=== PATIENT | female | born 1990 | race Hispanic/Latino ===

== ENCOUNTER 2016-10-16 17:51 | Emergency (ER) | payer MEDICAID ==
[2016-10-16 17:51] VITALS: BMI 41.1
[2016-10-16 17:59] VITALS: BP 110/66; PULSE 78; RESP 16; TEMP 98.3; O2SAT 99
--- NOTE | 2016-10-16 18:48 | ED PDOC ---
HPI: Abdomen Time Seen by Provider: 10/16/16 18:06 Chief Complaint (Nursing): Abdominal Pain Chief Complaint (Provider): Abdominal pain History Per: Patient History/Exam Limitations: no limitations Onset/Duration Of Symptoms: Days (4) Outside of [place] travel?: No Current Symptoms Are (Timing): Still Present Severity: Moderate Location Of Pain/Discomfort: Diffuse, RLQ, LUQ Quality Of Discomfort: Cramping, "Pain" Associated Symptoms: Vomiting, Diarrhea Additional History Per: Patient Additional Complaint(s): The pt is a 26yo female with PMHx of hypothyroid, asthma, ovarian cyst, presents to the ED for evaluation of progressively worsening abdominal pain for the past 4 days. Pt reports her pain radiates to her left flank with some pelvic pain near her right lower quadrant of abdomen. Pt reports pain is associated with 6-7 episodes of vomiting, non-bilious, sometimes blood tinged and 6-7 episodes of watery diarrhea, some instances with dark colored diarrhea and some instances with obey red blood. Pt reports she had similar episodes in the past 3 years and one point was thought to be caused by her ovarian cyst. Pt reports she had a surgery 2 years ago for the cyst however her symptoms have recurred. She denies any vaginal discharge or bleeding and reports her LMP as 2 months ago due to an irregular menstrual cycle. She denies any recent travel or changes to her diet. Pt offers no additional medical complaints. PCP: Dr. Caal, partnered with Dr. John Bacon's office. Abnormal Vaginal Bleeding: No Last Menstral Period: 2 months ago Past Medical History Reviewed: Historical Data, Nursing Documentation, Vital Signs Vital Signs: Last Vital Signs Temp 98.3 F 10/16/16 17:56 Pulse 78 10/16/16 17:56 Resp 16 10/16/16 17:56 BP 110/66 10/16/16 17:56 Pulse Ox 99 10/16/16 21:11 - Medical History PMH: Anemia (vitamin b intake), Asthma, Hyperthyroidism, Hypothyroidism Denies: Chronic Kidney Disease - Surgical History Other surgeries: ovarian cyst removal - Family History Family History: States: Unknown Family Hx Other Family History: MS - Social History Current smoker - smoking cessation education provided: No Alcohol: Occasional Drugs: Denies - Immunization History Hx Tetanus Toxoid Vaccination: No Hx Influenza Vaccination: No Hx Pneumococcal Vaccination: No - Home Medications Home Medications: Ambulatory Orders Medication Instructions Recorded Levothyroxine Sodium [Synthroid] 0.175 mg PO DAILY #30 tab 07/26/14 Ergocalciferol (Vitamin D2) 400 unit PO DAILY 06/25/16 [Vitamin D] Ondansetron ODT [Zofran ODT] 1 odt PO BID PRN #10 odt 06/25/16 Ibuprofen [Motrin Tab] 600 mg PO Q8 PRN #60 tab 10/16/16 Ondansetron ODT [Zofran ODT] 1 odt PO Q6 PRN #20 odt 10/16/16 - Allergies Allergies/Adverse Reactions: Allergies Allergy/AdvReac Type Severity Reaction Status Date / Time morphine Allergy Mild RASH Verified 06/25/16 02:51 Penicillins Allergy Mild RASH Verified 06/25/16 02:51 tramadol Allergy Mild RASH Verified 06/25/16 02:51 seafood Allergy Mild RASH Uncoded 06/25/16 02:51 Review of Systems ROS Statement: Except As Marked, All Systems Reviewed And Found Negative Gastrointestinal: Positive for: Vomiting, Abdominal Pain, Diarrhea Physical Exam - Reviewed Nursing Documentation Reviewed: Yes Vital Signs Reviewed: Yes - Physical Exam Appears: Positive for: Well, Non-toxic, Uncomfortable (mild-moderate painful distress) Head Exam: Positive for: ATRAUMATIC, NORMAL INSPECTION, NORMOCEPHALIC Skin: Positive for: Normal Color, Warm Eye Exam: Positive for: Normal appearance Neck: Positive for: Normal Cardiovascular/Chest: Positive for: Regular Rate, Rhythm Respiratory: Positive for: Normal Breath Sounds. Negative for: Respiratory Distress Gastrointestinal/Abdominal: Positive for: Soft, Tenderness (diffuse, greater in LUQ and RLQ), Other (obese abdomen) Back: Positive for: L CVA Tenderness Neurologic/Psych: Positive for: Alert, Oriented - Laboratory Results Result Diagrams: 10/16/16 19:10 10/16/16 19:10 - ECG O2 Sat by Pulse Oximetry: 99 (RA) Pulse Ox Interpretation: Normal Medical Decision Making Medical Decision Making: Time: 1824 Impression: Adominal pain Pts old charts were reviewed and she had has 3 CT w/o contrast since 2014. Pt's most recent imaging study done in june 2016 shows a 3cm left ovarian cyst. Pt currently denies acknowledgement of this finding. Pt's presentation in previous charts is similar to today. Differential: Gastroenteritis, ovarian cyst, ovarian cyst rupture, colitis, UTI , kidney stone, pyelonephritis Plan: * Bloodwork * US Renal * US Transvaginal * Zofran * Toradol * Urinalysis * Reassess Accession No. : [id number] Patient Name / ID : MOMO HUGO / [id number] Exam Date : 10/16/2016 18:31:49 ( Approved ) Study Comment : Sex / Age : F / 26Y Creator : SURINDER KEE Dictator : Pharmacy Messenger : Mushroom Grower : SURINDER KEE Approver2 : Report Date : 10/16/2016 19:54:00 My Comment : [facility] Division of Radiology [address] [place] [address] Tel. no. Patient Name: OANH BARR Pt. Address: [address] [place] [address] Rec #: [id number] [place] [address]: Hunter CONN, Jessica Couch Pt Order Location: [facility] : 1990 Female Age: 26 Order #: [id number] Reason for exam: LEFT flank pain h/o kidney infection Ultrasound RENAL Exam Date: 10/16/16 This imaging exam was performed at [facility] EXAM: US Retroperitoneal Complete, Renal CLINICAL HISTORY: 26 years old, female; Pain; Other: Lt flank pain; Additional info: Left flank pain h/o kidney infection TECHNIQUE: Real-time ultrasound of the retroperitoneum (complete) with image documentation. EXAM DATE/TIME: 10/16/2016 6:23 PM COMPARISON: There are no prior studies for comparison. FINDINGS: Right kidney: Right kidney measures approximately 10.3 x 4.4 x 5 cm..Corticomedullary differentiation is not visualized.There is no pelvocaliectasis. Left kidney: Left kidney measures approximately 10.2 x 4.8 x 4.7 cm. Corticomedullary differentiation is not visualized. There is no pelvocaliectasis. Bladder: Bladder is the IMPRESSION: Normal size kidneys, no hydronephrosis Dictated By: Surinder Kee MD, MD Dictated Date/Time: 10/16/161953 Signed By: Surinder Kee MD Date Signed: 1953 Transcribed By: TOI Transcribe Date/Time : 10/16/161953 MURPHY/MAMTA EXAM: US Pelvis, Transvaginal CLINICAL HISTORY: 26 years old, female; Pain; Pelvic pain; Additional info: Pelvic pain h/o ovarian cyst surgery R/O torsion TECHNIQUE: Real-time transvaginal pelvic ultrasound (complete) with image documentation. Transvaginal imaging was used for better evaluation of the endometrium and adnexa. EXAM DATE/TIME: 10/16/2016 6:23 PM COMPARISON: There are no prior studies for comparison. FINDINGS: Uterus: Uterus measures roughly 8.4 x 4 x 4.7 cm. Endometrium measures 7.4 mm in width. Right ovary: There are multiple follicles in the right ovary. There is a right ovarian cyst.There is expected blood flow on Doppler imaging Left ovary: There are follicles in left ovary. There is a left ovarian cyst There is expected blood flow on Doppler imaging Free fluid: There is free fluid in the left adnexa Bladder: Bladder is empty. IMPRESSION: No torsion Thank you for allowing us to participate in the care of your patient. Dictated and Authenticated by: Surinder Kee MD 10/16/2016 10:08 PM Eastern Time ([place] & [place]) DW pt findings and stressed importance of follow up with [facility] and GI. Scribe Attestation: Documented by Lory Grey acting as a scribe for Jessica Harrison MD. Provider Attestation: All medical record entries made by the Scribe were at my direction and personally dictated by me. I have reviewed the chart and agree that the record accurately reflects my personal performance of the history, physical exam, medical decision making, and the department course for this patient. I have also personally directed, reviewed, and agree with the discharge instructions and disposition. Disposition - Clinical Impression Clinical Impression: Abdominal pain, Ovarian cyst, Vomiting and diarrhea Counseled Patient/Family Regarding: Studies Performed, Diagnosis, Need For Followup, Rx Given - Disposition Referrals: Jeovanny Soliz MD [Staff Provider] - Duy Louis MD [Staff Provider] - Tom Caal MD [Medical Doctor] - [facility] [Outside] Disposition: Routine/Home Disposition Time: 22:00 Condition: STABLE Additional Instructions: YOU SHOULD FOLLOW UP WITH GASTROENTEROLOGY AND GYNECOLOGY WITHIN A WEEK TAKE MEDICATIONS PRESCRIBED Prescriptions: Ibuprofen [Motrin Tab] 600 mg PO Q8 PRN #60 tab PRN Reason: Pain, Moderate (4-7) Ondansetron ODT [Zofran ODT] 1 odt PO Q6 PRN #20 odt PRN Reason: Nausea/Vomiting Instructions: Abdominal Pain (ED), Ovarian Cyst (ED), Polycystic Ovarian Syndrome (ED)
[2016-10-16 19:02] LABS: RBC URINE 3 /hpf (0-3); URINE BACTERIA OCC (<OCC); URINE BILIRUBIN SMALL (NEGATIVE); URINE BLOOD NEGATIVE (NEGATIVE); URINE COLOR AMBER (YELLOW); URINE GLUCOSE (UA) NEG (Normal); URINE KETONE NEGATIVE (NEGATIVE); URINE LEUKOCYTE ESTERASE SMALL Leu/uL (Negative); URINE PROTEIN 100 mg/dL (NEGATIVE); WBC URINE 15 /hpf (0-5)
--- NOTE | 2016-10-16 19:54 | US ---
EXAM: US Retroperitoneal Complete, Renal CLINICAL HISTORY: 26 years old, female; Pain; Other: Lt flank pain; Additional info: Left flank pain h/o kidney infection TECHNIQUE: Real-time ultrasound of the retroperitoneum (complete) with image documentation. EXAM DATE/TIME: 10/16/2016 6:23 PM COMPARISON: There are no prior studies for comparison. FINDINGS: Right kidney: Right kidney measures approximately 10.3 x 4.4 x 5 cm..Corticomedullary differentiation is not visualized.There is no pelvocaliectasis. Left kidney: Left kidney measures approximately 10.2 x 4.8 x 4.7 cm. Corticomedullary differentiation is not visualized. There is no pelvocaliectasis. Bladder: Bladder is the IMPRESSION: Normal size kidneys, no hydronephrosis
[2016-10-16 20:06] LABS: BASO % 0.5 % (0.0-2.0); EOS # 0.1 K/uL (0.0-0.7); EOS % 1.8 % (0.0-4.0); LYMPH # 1.8 K/uL (1.0-4.3); LYMPH % 28.2 % (20.0-40.0); MEAN CELL VOLUME 84.2 fl (81.0-99.0); MEAN CORPUSCULAR HEMOGLOBIN 27.7 pg (27.0-31.0); MEAN PLATELET VOLUME 10.4 fl (7.2-11.7); MONO # 0.4 K/uL (0.0-0.8); NEUT # 4.1 K/uL (1.8-7.0); NEUT % 63.5 % (50.0-75.0); NRBC % 0.2 % (0.0-0.0); RED CELL DISTRIBUTION WIDTH 14.7 % (11.5-14.5); WHITE BLOOD COUNT 6.5 K/uL (4.8-10.8)
[2016-10-16 20:10] LABS: ALB/GLOB RATIO 1.3 (1.0-2.1); ALKALINE PHOSPHATASE 75 U/L (38-126); ALT/SGPT 31 U/L (9-52); AST/SGOT 28 U/L (14-36); BILIRUBIN,TOTAL 0.8 mg/dl (0.2-1.3); BLOOD UREA NITROGEN 8 mg/dl (7-17); CALCIUM 9.3 mg/dL (8.4-10.2); CARBON DIOXIDE 25 mmol/L (22-30); CHLORIDE 106 mmol/L (98-107); GFR AFRICAN-AMERICAN > 60; GLUCOSE,RANDOM 81 mg/dL (65-105); LIPASE 21 U/L (23-300); POTASSIUM 4.3 MMOL/L (3.6-5.0); SODIUM 141 mmol/l (132-148); TOTAL PROTEIN 7.9 G/DL (6.3-8.2)
[2016-10-16 20:27] LABS: T4 8.71 ug/dl (5.5-11.0)
[2016-10-16 20:41] LABS: THYROID STIMULATING HORMONE 3.21 mIU/ML (0.46-4.68)
--- NOTE | 2016-10-17 09:26 | RAD ---
HISTORY: LEFT posterior pain COMPARISON: No prior. TECHNIQUE: Chest PA and lateral FINDINGS: LUNGS: No active pulmonary disease. PLEURA: No significant pleural effusion identified. No pneumothorax apparent. CARDIOVASCULAR: Normal. OSSEOUS STRUCTURES: No significant abnormalities. VISUALIZED UPPER ABDOMEN: Normal. OTHER FINDINGS: None. IMPRESSION: Consider followup the CT scan if further evaluation is required.
--- NOTE | 2016-10-17 11:10 | US ---
HISTORY: pelvic pain h/o ovarian cyst surgery r/o torsion. LMP 2 months ago. Menstrual status: Irregular cycles. COMPARISON: None available. TECHNIQUE: Transvaginal only. Real -time technique with 2D, duplex and color Doppler FINDINGS: UTERUS: Measures 3.9 x 4.8 x 8.4 cm. Normal in size and appearance. No fibroid or other mass lesion seen. ENDOMETRIUM: Measures 7.4 mm in diameter. Unremarkable. CERVIX: No cervical abnormality identified. RIGHT OVARY: Measures 2.7 x 4.1 cm. No solid mass. Normal flow. Multiple subcentimeter follicles. Dominant cyst 1.8 x 1.9 cm LEFT OVARY: Measures 2.7 x 3.6 cm. No solid mass. Normal flow. Simple cysts (2). 2.3 x 2.3 cm and 1.9 x 2.6 cm. FREE FLUID: No significant free fluid noted. OTHER FINDINGS: None. IMPRESSION: No acute findings related to/accounting for the clinical presentation. Specifically no evidence of adnexal torsion. Concordant results (preliminary interpretation) provided by [facility]. Procedure Completed: 18:42. Preliminary ([facility]) Report: Dictated and Authenticated: 22:08. Final Interpretation: 11:03. October 17, 2016.
[2016-10-17 16:43] LABS: FT3 3.95 pg/mL (2.77-5.27)
--- NOTE | 2016-10-18 16:40 | CARD ---
APPROVED REPORT EKG Measurement Heart [id number] <Conclusion> Sinus bradycardia Low voltage QRS Borderline ECG
== END 2016-10-16 23:42 | disposition home or self-care (01) ==
LOC: H.ER 17:51
DX: N83.202 Unspecified ovarian cyst, left side (principal); R10.2 Pelvic and perineal pain; E28.2 Polycystic ovarian syndrome; R11.10 Vomiting, unspecified; R19.7 Diarrhea, unspecified; Z88.0 Allergy status to penicillin; E03.9 Hypothyroidism, unspecified; J45.909 Unspecified asthma, uncomplicated; E05.90 Thyrotoxicosis, unspecified without thyrotoxic crisis or storm; N83.201 Unspecified ovarian cyst, right side; R07.9 Chest pain, unspecified; N15.9 Renal tubulo-interstitial disease, unspecified; R00.1 Bradycardia, unspecified